=== PATIENT | male | born 1975 | race Caucasian/White ===

== ENCOUNTER 2018-03-07 21:35 | Emergency (ER) | payer MEDICAID ==
[~2018-03-07] VITALS: Ht 185.4 cm; Wt 102.3 kg
[~2018-03-07 21:35] MED LIST: NO HOME MEDS
[2018-03-07 21:42] VITALS: BP 147/87
[2018-03-07] MEDS ORDERED: ibuprofen tablet 400 MG TABLET PO ONE (23:30)
== END 2018-03-07 23:40 ==
LOC: ER 21:35
DX: M79.605 Pain in left leg (principal); Z02.89 Encounter for other administrative examinations
CPT/HCPCS: 99283

== ENCOUNTER 2024-10-09 00:42 | Emergency (ER) | payer MEDICAID ==
[~2024-10-09] VITALS: Ht 185.4 cm; Wt 96.7 kg
[2024-10-09] MEDS: ibuprofen tablet 400 MG TABLET PO ONE (02:20)
[2024-10-09 02:23] VITALS: BP 158/106; PULSE 80; RESP 16; TEMP 98.2; O2SAT 98
== END 2024-10-09 02:20 | disposition home or self-care (01) ==
LOC: ER 00:44
DX: S63.592A Other specified sprain of left wrist, initial encounter (principal); M79.645 Pain in left finger(s); Z98.890 Other specified postprocedural states; Z72.89 Other problems related to lifestyle; W01.0XXA Fall on same level from slipping, tripping and stumbling without subsequent striking against object, initial encounter; Y93.89 Activity, other specified; Y92.89 Other specified places as the place of occurrence of the external cause; Y99.8 Other external cause status
CPT/HCPCS: 29125; 73130; 99284